=== PATIENT | male | born 1955 | race Caucasian/White ===

== ENCOUNTER → 2021-09-12 16:23 | Outpatient (BNVA) | payer MEDICARE, SELFPAY | PROVIDERS: Visit Provider Family Medicine | DX: B19.10 Unspecified viral hepatitis B without hepatic coma (principal); E03.9 Hypothyroidism, unspecified; E78.2 Mixed hyperlipidemia; G47.00 Insomnia, unspecified; K76.0 Fatty (change of) liver, not elsewhere classified; Z76.89 Persons encountering health services in other specified circumstances; Z80.0 Family history of malignant neoplasm of digestive organs | CPT/HCPCS: 80053; 80061; 84153; 84439; 84443; 85025 ==

== ENCOUNTER → 2022-03-05 12:13 | Outpatient (BNVA) | payer MEDICARE, SELFPAY | PROVIDERS: PCP Family Medicine; Visit Provider Family Medicine | DX: G47.33 Obstructive sleep apnea (adult) (pediatric) (principal); R06.83 Snoring; B18.1 Chronic viral hepatitis B without delta-agent; E03.9 Hypothyroidism, unspecified; K76.0 Fatty (change of) liver, not elsewhere classified; N40.0 Benign prostatic hyperplasia without lower urinary tract symptoms; E78.2 Mixed hyperlipidemia; G47.00 Insomnia, unspecified | CPT/HCPCS: 80053; 80061; 84153; 84439; 84443; 85025; 86705; 86706; 86803; 87340; 87806 ==

== ENCOUNTER → 2022-08-11 14:38 | Outpatient (BNVA) | payer MEDICARE, SELFPAY | PROVIDERS: PCP Family Medicine; Visit Provider Family Medicine | DX: B19.10 Unspecified viral hepatitis B without hepatic coma (principal); E03.9 Hypothyroidism, unspecified; E78.2 Mixed hyperlipidemia; Z09 Encounter for follow-up examination after completed treatment for conditions other than malignant neoplasm; K76.0 Fatty (change of) liver, not elsewhere classified; G47.00 Insomnia, unspecified | CPT/HCPCS: 80053; 80061; 84439; 84443; 85025 ==

== ENCOUNTER → 2022-08-27 13:27 | Outpatient (BNVA) | payer MEDICARE, SELFPAY | PROVIDERS: PCP Family Medicine; Visit Provider Podiatrist Foot & Ankle Surgery | DX: L90.9 Atrophic disorder of skin, unspecified (principal); M77.41 Metatarsalgia, right foot; M77.42 Metatarsalgia, left foot; M21.6X1 Other acquired deformities of right foot; M21.6X2 Other acquired deformities of left foot | CPT/HCPCS: 73630; 99203 ==

== ENCOUNTER 2022-10-16 20:00 | Outpatient (CLI) | payer MEDICARE, SELFPAY | END 2022-10-16 20:01 | disposition home or self-care (01) | LOC: SLEEP 10-17 05:37 | PROVIDERS: PCP Family Medicine; Visit Provider Family Medicine | DX: G47.33 Obstructive sleep apnea (adult) (pediatric) (principal); R06.83 Snoring | CPT/HCPCS: 95811 ==

== ENCOUNTER 2022-11-27 06:42 | Outpatient (CLI) | payer MEDICARE, SELFPAY ==
--- NOTE | 2022-11-27 07:30 | US_ITS ---
WS: [id number] RIGHT UPPER QUADRANT ULTRASOUND HISTORY: Hepatitis B infection, chronic. COMPARISON: None available. Liver: 15.6 cm in length. Mild diffuse coarse echotexture throughout the liver. Liver remains normal size. No mass or bile duct dilatation. Portal Vein: Normal hepatopetal flow with monophasic waveform. Gallbladder: Normally distended gallbladder with no stones or wall thickening. CBD: 0.3 cm Pancreas: Not visualized. Obscured by bowel gas and body habitus. Right kidney: 11.3 cm in length. Normal size and echogenicity. No hydronephrosis or mass. Aorta and IVC: Unremarkable abdominal aorta and IVC. No ascites. IMPRESSION: 1. Normal size liver with hepatic steatosis versus hepatocellular disease such as cirrhosis. No mass or bile duct dilatation. 2. Normal gallbladder. 3. Pancreas not visualized.
== END 2022-11-27 06:43 | disposition home or self-care (01) ==
PROVIDERS: PCP Family Medicine; Visit Provider Family Medicine
DX: B18.1 Chronic viral hepatitis B without delta-agent (principal); K76.0 Fatty (change of) liver, not elsewhere classified
CPT/HCPCS: 76705

== ENCOUNTER → 2022-12-01 08:51 | Outpatient (BNVA) | payer MEDICARE, SELFPAY | PROVIDERS: PCP Family Medicine; Visit Provider Otolaryngology | DX: H93.13 Tinnitus, bilateral (principal); H91.93 Unspecified hearing loss, bilateral | CPT/HCPCS: 99203 ==

== ENCOUNTER → 2023-06-01 15:01 | Outpatient (BNVA) | payer MEDICARE, SELFPAY | PROVIDERS: PCP Family Medicine; Visit Provider Otolaryngology | DX: H90.3 Sensorineural hearing loss, bilateral (principal); H93.13 Tinnitus, bilateral | CPT/HCPCS: 99213; 99214 ==

== ENCOUNTER 2024-01-09 14:07 | Emergency (ER) | payer MEDICARE, SELFPAY ==
[2024-01-09 14:49] VITALS: BP 147/73; PULSE 60; RESP 16; TEMP 36.7; O2SAT 95; BMI 32.3
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
[2024-01-09] MEDS: ondansetron 2 mg/ML SDV 2 mL 4 MG IVP (17:28)
[2024-01-09] MEDS: ketorolac 30 mg/mL INJ 15 MG IVP (17:30)
[2024-01-09 17:31] VITALS: RESP 16; O2SAT 98
[2024-01-09] MEDS: HYDROmorphone 1 mg/mL INJ 1 mL IVP (17:31)
[2024-01-09] MEDS: tetanus-dipt-pertussis 0.5 mL SDV IM (17:52)
[2024-01-09 18:18] VITALS: BP 165/85; PULSE 53; O2SAT 95
--- NOTE | 2024-01-09 18:22 | PC.NURSE ---
shoulder immobilizer applied, couldnt find charge option for it.
--- NOTE | 2024-01-12 08:34 | DCPLANNER ---
Message sent to Ortho for follow up
== END 2024-01-09 18:20 | disposition home or self-care (01) ==
PROVIDERS: Emergency Provider Emergency Medicine; PCP Family Medicine
DX: S42.291A Other displaced fracture of upper end of right humerus, initial encounter for closed fracture (principal); Z79.82 Long term (current) use of aspirin; V22.49XA Other motorcycle driver injured in collision with two- or three-wheeled motor vehicle in traffic accident, initial encounter; Z23 Encounter for immunization
CPT/HCPCS: 73030; 90471; 90715; 96374; 96375; 99284; J1170; J1885; J2405

== ENCOUNTER → 2024-01-15 08:55 | Outpatient (BNVA) | payer MEDICARE, SELFPAY | PROVIDERS: Referring Provider Emergency Medicine; Visit Provider Nurse Practitioner | DX: S42.231A 3-part fracture of surgical neck of right humerus, initial encounter for closed fracture; S50.311A Abrasion of right elbow, initial encounter; V29.99XA Rider (driver) (passenger) of other motorcycle injured in unspecified traffic accident, initial encounter; L08.9 Local infection of the skin and subcutaneous tissue, unspecified | CPT/HCPCS: 23600; 73030; 99204 ==

== ENCOUNTER → 2024-02-01 09:07 | Outpatient (BNVA) | payer MEDICARE, SELFPAY | PROVIDERS: Visit Provider Nurse Practitioner | DX: S42.231D 3-part fracture of surgical neck of right humerus, subsequent encounter for fracture with routine healing (principal); S50.311D Abrasion of right elbow, subsequent encounter; V29.99XD Rider (driver) (passenger) of other motorcycle injured in unspecified traffic accident, subsequent encounter | CPT/HCPCS: 73030; 73080; 99024 ==

== ENCOUNTER 2024-02-18 17:19 | Emergency (ER) | payer MEDICARE, SELFPAY ==
[2024-02-18 17:35] VITALS: BP 163/76; PULSE 62; RESP 18; TEMP 36.3; O2SAT 96; BMI 34.0
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
[2024-02-18 22:04] VITALS: BP 159/81; PULSE 66; RESP 18; O2SAT 95
== END 2024-02-18 22:04 | disposition home or self-care (01) ==
PROVIDERS: Emergency Provider Physician Assistant
DX: S13.9XXA Sprain of joints and ligaments of unspecified parts of neck, initial encounter (principal); V89.2XXA Person injured in unspecified motor-vehicle accident, traffic, initial encounter; Z79.82 Long term (current) use of aspirin; Z87.891 Personal history of nicotine dependence
CPT/HCPCS: 72125; 73030; 99284

== ENCOUNTER → 2024-02-29 08:47 | Outpatient (BNVA) | payer MEDICARE, SELFPAY | PROVIDERS: Visit Provider Nurse Practitioner | DX: S42.231A 3-part fracture of surgical neck of right humerus, initial encounter for closed fracture (principal); V29.99XA Rider (driver) (passenger) of other motorcycle injured in unspecified traffic accident, initial encounter | CPT/HCPCS: 73030; 99213 ==

== ENCOUNTER → 2024-03-10 13:00 | Outpatient (BNVA) | payer MEDICARE, SELFPAY | PROVIDERS: PCP Family Medicine; Visit Provider Family Medicine | DX: G62.9 Polyneuropathy, unspecified (principal); E78.2 Mixed hyperlipidemia; K21.9 Gastro-esophageal reflux disease without esophagitis; G47.00 Insomnia, unspecified; Z12.5 Encounter for screening for malignant neoplasm of prostate; E03.9 Hypothyroidism, unspecified; R79.89 Other specified abnormal findings of blood chemistry; E55.9 Vitamin D deficiency, unspecified; K76.0 Fatty (change of) liver, not elsewhere classified | CPT/HCPCS: 80053; 80061; 82306; 82607; 84439; 84443; 85025; G0103 ==

== ENCOUNTER → 2024-03-21 07:57 | Outpatient (BNVA) | payer MEDICARE, SELFPAY | PROVIDERS: PCP Family Medicine; Visit Provider Nurse Practitioner | DX: S42.231A 3-part fracture of surgical neck of right humerus, initial encounter for closed fracture (principal); V29.99XA Rider (driver) (passenger) of other motorcycle injured in unspecified traffic accident, initial encounter; M19.011 Primary osteoarthritis, right shoulder | CPT/HCPCS: 73030; 99024 ==

== ENCOUNTER → 2024-04-29 15:58 | Outpatient (BNVA) | payer MEDICARE, SELFPAY | PROVIDERS: PCP Family Medicine; Visit Provider Emergency Medicine | DX: R05.9 Cough, unspecified (principal); J20.8 Acute bronchitis due to other specified organisms; B96.89 Other specified bacterial agents as the cause of diseases classified elsewhere | CPT/HCPCS: 87400; 87426 ==

== ENCOUNTER → 2024-05-02 09:16 | Outpatient (BNVA) | payer OTHER, MEDICARE, SELFPAY | PROVIDERS: PCP Family Medicine; Visit Provider Nurse Practitioner | DX: S42.231A 3-part fracture of surgical neck of right humerus, initial encounter for closed fracture (principal); M19.011 Primary osteoarthritis, right shoulder; X58.XXXA Exposure to other specified factors, initial encounter; V29.99XA Rider (driver) (passenger) of other motorcycle injured in unspecified traffic accident, initial encounter | CPT/HCPCS: 73030 ==

== ENCOUNTER → 2024-06-27 09:55 | Outpatient (BNVA) | payer MEDICARE, SELFPAY | PROVIDERS: PCP Family Medicine; Visit Provider Nurse Practitioner | DX: M19.011 Primary osteoarthritis, right shoulder (principal); S42.231D 3-part fracture of surgical neck of right humerus, subsequent encounter for fracture with routine healing; V29.99XD Rider (driver) (passenger) of other motorcycle injured in unspecified traffic accident, subsequent encounter | CPT/HCPCS: 73030; 99213 ==